=== PATIENT | male | born 1990 | race Caucasian/White ===

== ENCOUNTER 2024-01-15 12:07 | Emergency (ER) | payer BC, OTHER ==
[2024-01-15] MEDS: Diphtheria,Pertussis(Acell),Tetanus Vaccine 0.5 ML Syringe IM ONE (12:53)
[2024-01-15] MEDS: Bupivacaine 0.5% 10 ML SDV INJECT ONE (12:54)
[2024-01-15] MEDS: Lidocaine 1% 10 ML MDV INJECT ONE (12:54)
[2024-01-15 15:11] VITALS: BP 130/86; PULSE 75
== END 2024-01-15 14:01 | disposition home or self-care (01) ==
LOC: JD.ED 12:07
DX: S61.210A Laceration without foreign body of right index finger without damage to nail, initial encounter (principal); S61.212A Laceration without foreign body of right middle finger without damage to nail, initial encounter; Z23 Encounter for immunization; W23.0XXA Caught, crushed, jammed, or pinched between moving objects, initial encounter; Y99.0 Civilian activity done for income or pay
CPT/HCPCS: 12002; 73130; 90471; 90715; 99283; J0665; 12001; J3490